=== PATIENT | female | born 1985 | race American Indian/Alaskan Native ===

== ENCOUNTER 2021-07-07 19:15 | Emergency (ER) | payer OTHER ==
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
--- NOTE | 2021-07-08 00:08 | XRay Report ---
RIGHT RIBS 3 VIEWS INDICATION: right chest injury. COMPARISON: None available. FINDINGS: RIBS: No acute, displaced fracture or other acute abnormality. CHEST: No acute findings. No pneumothorax. ADDITIONAL FINDINGS: There is mild leftward curvature of the upper thoracic spine. IMPRESSION: 1. No acute abnormality. Signer Name: Kirk Terrell MD Signed: 07/08/2021 12:04 AM Workstation Name: [id number]
[2021-07-08 01:11] VITALS: BP 119/74
== END 2021-07-08 01:10 | disposition home or self-care (01) ==
LOC: ED 19:15
DX: S20.219A Contusion of unspecified front wall of thorax, initial encounter (principal); V49.49XA Driver injured in collision with other motor vehicles in traffic accident, initial encounter; Y93.89 Activity, other specified; Y92.89 Other specified places as the place of occurrence of the external cause; Y99.8 Other external cause status
CPT/HCPCS: 99283